=== PATIENT | male | born 1965 | race Two or more races ===

== ENCOUNTER 2021-10-23 16:00 | Emergency (ER) | payer MEDICAID, OTHER ==
[~2021-10-23] VITALS: Ht 165.1 cm; Wt 73.0 kg
--- NOTE | 2021-10-23 16:26 | NUR ---
BIBSELF C/O LOWER ABD PAIN WITH VOMITING. PT STARTED TAKING MUSCLE GAIN SUPPLEMENTS YESTERDAY. HX OF SMALL BOWEL OBSTRUCTION JUL 2021. TO ER BED 11, HOOKED TO MONITOR, CHANGED TO HOSP GOWN, WARM BLANKET PROVIDED. PATIENT AAO x 4. BREATHING EVENA ND UNLABORED. AWAITING MD DOBBS
--- NOTE | 2021-10-23 16:27 | NUR ---
TO ER BED 11, BIBSELF C/O LOWER ABD PAIN WITH VOMITING. PT STARTED TAKING MUSCLE GAIN SUPPLEMENTS YEST. HX OF SBO JUL 2021, AAOX3, CONNECTED TO MONITOR, BREATHING EVEN AND NON LABORED, AWAITING MD DOBBS
--- NOTE | 2021-10-23 16:51 | NUR ---
DR RODRIGUEZ AT BEDSIDE
[2021-10-23 17:32] LABS: BASOPHILS # (AUTO) 0.1 K/uL (0.0-0.2); BASOPHILS % (AUTO) 0.5 % (0.0-2.0); EOSINOPHILS % (AUTO) 0.1 % (0.0-6.0); HEMATOCRIT 44 % (39-51); HEMOGLOBIN 14.9 g/dL (13.5-17.5); LYMPHOCYTES # (AUTO) 1.3 K/uL (0.8-4.8); MEAN CORPUSCULAR HGB CONC 34 g/dl (31.0-36.0); MEAN CORPUSCULAR VOLUME 95 fL (80-96); MONOCYTES # (AUTO) 0.4 K/uL (0.1-1.30); MONOCYTES % (AUTO) 4.2 % (2.0-12.0); NEUTROPHILS # (AUTO) 8.4 K/uL (1.8-8.9); NEUTROPHILS % (AUTO) 82.2 % (43.0-81.0); PLATELET COUNT (AUTO) 219 K/uL (150-450); RED BLOOD CELL COUNT(AUTO) 4.64 MIL/uL (4.5-6.0); WHITE BLOOD COUNT (AUTO) 10.2 K/uL (4.3-11.0)
[2021-10-23 17:34] LABS: BILIRUBIN,URINE NEGATIVE (NEGATIVE); COLOR,URINE YELLOW (YELLOW); LEUKOCYTE ESTERASE ,URINE NEGATIVE (NEGATIVE); NITRITE, URINE NEGATIVE (NEGATIVE); PH,URINE 5.5 (5.0-8.0); PROTEIN,URINE NEGATIVE (NEGATIVE); UGLUCOSE NEGATIVE (NEGATIVE); UROBILINOGEN,URINE 0.2 EU/dL (0.2)
[2021-10-23 18:03] LABS: CALCIUM, SERUM 8.7 mg/dL (8.5-10.1); CREATININE 1.2 mg/dL (0.6-1.3); POTASSIUM 4.1 mmol/L (3.5-5.1)
[2021-10-23 18:09] LABS: ALBUMIN 3.9 g/dL (3.4-5.0); BILIRUBIN,DIRECT 0.1 mg/dL (0.0-0.2); BILIRUBIN,TOTAL 0.5 mg/dL (0.2-1.0); TOTAL PROTEIN, SERUM 6.9 g/dL (6.4-8.2)
[2021-10-23] MEDS ORDERED: FAMO-131 PO (20:04)
[2021-10-23] MEDS ORDERED: POLY17PO4 PO (20:05)
--- NOTE | 2021-10-23 20:38 | NUR ---
Patient discharged to home in stable condition. Written and verbal after care instructions given. Patient verbalizes understanding of instruction.
[2021-10-23 20:49] VITALS: BP 129/80
== END 2021-10-23 20:49 | disposition home or self-care (01) ==
LOC: ER 16:37
DX: R10.13 Epigastric pain (principal); R10.10 Upper abdominal pain, unspecified
CPT/HCPCS: 36415; 74018; 76705-TC; 80048-TC; 80076-TC; 83690-TC; 85025-TC